=== PATIENT | female | born 1995 | race Caucasian/White ===

== ENCOUNTER 2024-12-12 19:35 | Inpatient (IN) | payer SELFPAY ==
[2024-12-12] MEDS ORDERED: Sodium Chloride 0.9% 2.5 ML Syringe FLUSH PRN (19:37)
[2024-12-12] MEDS ORDERED: Butorphanol 2 MG/ML SDV IVPUSH PRN (19:37)
[2024-12-12] MEDS ORDERED: Tranexamic Acid in NACL,ISO-OS 1,000 MG in Premix Bag 1 BAG IV PRN (19:37)
[2024-12-12] MEDS ORDERED: Lidocaine 1% 50 ML MDV INJECT PRN (19:37)
[2024-12-12] MEDS ORDERED: Carboprost Tromethamine 250 MCG/1 mL Vial IM PRN (19:37)
[2024-12-12] MEDS ORDERED: Misoprostol 200 MCG Tab PO PRN (19:37)
[2024-12-12] MEDS ORDERED: Sodium Chloride 0.9% 10 ML Syringe FLUSH PRN (19:37)
[2024-12-12] MEDS ORDERED: Sodium Chloride 0.9% 20 ML SDV IV PRN (19:37)
[2024-12-12] MEDS ORDERED: Water For Irrigation,Sterile 1,000 ML Container IRR PRN (19:37)
[2024-12-12] MEDS ORDERED: Methylergonovine 0.2 MG/1 ML Amp IM PRN (19:37)
[2024-12-12] MEDS ORDERED: Magnesium Sulfate (4.06 MEQ/ML) 5 GM/10 ML SDV IV ONE (19:40)
[2024-12-12] MEDS ORDERED: Oxytocin/0.9 % Sodium Chloride 30 UNIT/500 ML BAG IV SCH (19:45)
[2024-12-12] MEDS ORDERED: Magnesium Sulfate (4.06 MEQ/ML) 5 GM/10 ML SDV IV SCH (19:45)
[2024-12-12] MEDS ORDERED: Magnesium Sulfate/Water Premix 20 GM/500 ML BAG ONE (19:51)
[2024-12-12] MEDS: Lactated Ringers 1,000 ML IV SCH (20:03)
[2024-12-12] MEDS: Magnesium Sulfate/Water Premix 50 ML ONE (20:04)
[2024-12-12] MEDS: Magnesium Sulfate/Water Premix 100 ML ONE (20:05)
[2024-12-12 20:44] LABS: HEMATOCRIT 32.8 % (37.0-47.0); HEMOGLOBIN 11.3 g/dL (12.0-16.0); MEAN CORPUSCULAR HEMOGLOBIN 31.7 pg (28.0-32.0); MEAN CORPUSCULAR HGB CONC 34.5 g/dL (32.0-36.0); MEAN CORPUSCULAR VOLUME 92.1 fL (83.0-99.0); MEAN PLATELET VOLUME 12.6 fL (9.4-12.3); PLATELET COUNT,PLT 166 K/uL (150-400); RED BLOOD CELL COUNT 3.56 M/uL (4.10-5.30); WHITE BLOOD CELL COUNT,WBC 11.05 K/uL (3.9-11.3)
[2024-12-12] MEDS: Magnesium Sulfate/Water Premix 20 GM/500 ML BAG IV SCH (20:45)
[2024-12-12] MEDS: Ondansetron 4 MG/2 ML SDV IVPUSH ONE (20:47)
[2024-12-12] MEDS ORDERED: Famotidine 40 MG/5 ML Bottle PO ONE (21:10)
[2024-12-12] MEDS: Famotidine 20 MG Tab PO ONE (21:59)
[2024-12-13 16:24] LABS: GROUP B STREP BY PCR NEGATIVE (NEGATIVE)
== END 2024-12-12 22:38 | DRG 833 ==
LOC: MW.OB 19:35
PROVIDERS: ADMIT Obstetrics & Gynecology; ATTEND Obstetrics & Gynecology
DX: O60.02 Preterm labor without delivery, second trimester (principal); O30.032 Twin pregnancy, monochorionic/diamniotic, second trimester; O43.022 Fetus-to-fetus placental transfusion syndrome, second trimester; O40.2XX0 Polyhydramnios, second trimester, not applicable or unspecified; Z3A.26 26 weeks gestation of pregnancy
CPT/HCPCS: 51702; 59025; 85027; 86592; 86850; 86900; 86901; 87653; A9270-GY; J2405; J3475; J7120

== ENCOUNTER 2025-01-26 10:03 | Inpatient (IN) | payer BC ==
[2025-01-26] MEDS ORDERED: Propofol 200 MG/20 ML SDV ONE ×2 (10:53→11:44)
[2025-01-26] MEDS ORDERED: fentaNYL 100 MCG/2 ML SDV ONE ×2 (10:55→12:24)
[2025-01-26] MEDS ORDERED: Azithromycin 500 MG Vial ONE (11:11)
[2025-01-26] MEDS ORDERED: Oxytocin 10 Units/1 ML SDV ONE ×2 (11:27→12:29)
[2025-01-26 11:45] LABS: PTT,PARTIAL THROMBOPLSTIN TIME 21.1 SEC (23.9-30.7)
[2025-01-26 11:47] LABS: A/G RATIO 0.5 (0.9-1.6); ALBUMIN 2.1 g/dL (3.4-5.0); BILIRUBIN TOTAL 0.3 mg/dL (0.2-1.0); CALCIUM 8.3 mg/dL (8.5-10.1); CARBON DIOXIDE,CO2 18.9 mmol/L (21.0-32.0); CREATININE 0.8 mg/dL (0.6-1.0); EST CRCL DRUG DOSING (CG) 98.01 mL/min; POTASSIUM,K 4.3 mmol/L (3.5-5.1); PROTEIN TOTAL,TP 6.1 g/dL (6.4-8.2)
[2025-01-26] MEDS ORDERED: diphenhydrAMINE 50 MG/ML SDV IVPUSH PRN ×2 (11:57→12:46)
[2025-01-26] MEDS ORDERED: Methylergonovine 0.2 MG/1 ML Amp IM PRN (11:57)
[2025-01-26] MEDS ORDERED: Naloxone 0.4 MG/ML SDV IVPUSH PRN ×3 (11:57→12:46)
[2025-01-26] MEDS ORDERED: Ibuprofen 800 MG Tab PO PRN (11:57)
[2025-01-26] MEDS ORDERED: Lanolin 100% Cream 7 GM Tube TOP PRN (11:57)
[2025-01-26] MEDS ORDERED: Bisacodyl 10 MG Supp RECTAL PRN (11:57)
[2025-01-26] MEDS ORDERED: Misoprostol 200 MCG Tab RECTAL PRN (11:57)
[2025-01-26] MEDS ORDERED: Tranexamic Acid in NACL,ISO-OS 1,000 MG/100 ML Bag ONE (12:00)
[2025-01-26] MEDS ORDERED: EPINEPHrine 1 MG/1 ML Amp ONE (12:28)
[2025-01-26] MEDS ORDERED: ceFAZolin 1 GM Vial ONE (12:28)
[2025-01-26] MEDS ORDERED: Ropivacaine 0.5% 5 MG/ML 30 ML SDV ONE (12:28)
[2025-01-26] MEDS ORDERED: Bupivacaine 0.25% 30 ML SDV ONE (12:28)
[2025-01-26] MEDS ORDERED: Morphine PF 10 MG/10 ML SDV ONE (12:29)
[2025-01-26] MEDS ORDERED: Lidocaine 2% 5 ML SDV ONE (12:29)
[2025-01-26] MEDS: fentaNYL 100 MCG/2 ML SDV IVPUSH PRN (12:31)
[2025-01-26] MEDS ORDERED: Ondansetron 4 MG/2 ML SDV ONE (12:33)
[2025-01-26] MEDS ORDERED: Ondansetron 4 MG/2 ML SDV IVPUSH PRN ×2 (12:46)
[2025-01-26] MEDS ORDERED: Morphine 2 MG/ML SYRINGE IVPUSH PRN (12:46)
[2025-01-26] MEDS ORDERED: Nalbuphine 10 MG/1 ML Vial IVPUSH PRN (12:46)
[2025-01-26] MEDS ORDERED: Phenylephrine HCl In 0.9% NaCl 1 MG/10 ML Syringe IVPUSH PRN (12:46)
[2025-01-26] MEDS ORDERED: fentaNYL 50 MCG/ML SDV IVPUSH PRN (12:46)
[2025-01-26] MEDS ORDERED: HYDROmorphone 1 MG/ML Syringe IVPUSH PRN (12:46)
[2025-01-26] MEDS ORDERED: Albuterol 0.083% 2.5 MG/3 ML Neb Soln NEB PRN (12:46)
[2025-01-26] MEDS ORDERED: Metoclopramide 10 MG/2 ML SDV IVPUSH PRN (12:46)
[2025-01-26] MEDS: HYDROmorphone/Normal Saline 6 MG/30 ML PCA Vial IV PRN (13:48)
[2025-01-26] MEDS: Acetaminophen 1,000 MG in Premix Bag 1 BAG IV SCH (13:58)
[2025-01-26] MEDS: Ondansetron 4 MG/2 ML SDV IVPUSH PRN (13:58)
[2025-01-26] MEDS: Lactated Ringers 1,000 ML IV SCH (14:00)
[2025-01-26] MEDS: Simethicone 80 MG Tab.Chew PO SCH (14:05)
[2025-01-26] MEDS: Poractant Alfa 240 MG/3 ML SDV ONE (14:40)
[2025-01-26] MEDS: Poractant Alfa 120 MG/1.5 ML SDV ONE (14:40)
[2025-01-26] MEDS: fentaNYL 100 MCG/2 ML SDV IVPUSH ONE (14:43)
[2025-01-26 15:42] LABS: HEMATOCRIT 21.9 % (37.0-47.0); HEMOGLOBIN 7.4 g/dL (12.0-16.0); MEAN CORPUSCULAR HEMOGLOBIN 31.8 pg (28.0-32.0); MEAN CORPUSCULAR HGB CONC 33.8 g/dL (32.0-36.0); MEAN PLATELET VOLUME 12.3 fL (9.4-12.3); PLATELET COUNT,PLT 195 K/uL (150-400); RED BLOOD CELL COUNT 2.33 M/uL (4.10-5.30); WHITE BLOOD CELL COUNT,WBC 29.77 K/uL (3.9-11.3)
[2025-01-26 15:55] LABS: INR 1.01 (0.86-1.11); PTT,PARTIAL THROMBOPLSTIN TIME 22.5 SEC (23.9-30.7)
[2025-01-26] MEDS: Ferrous Sulfate 325 MG Tab PO SCH (16:11)
[2025-01-26 20:36] LABS: HEMATOCRIT 20.7 % (37.0-47.0); MEAN CORPUSCULAR HEMOGLOBIN 31.4 pg (28.0-32.0); MEAN CORPUSCULAR HGB CONC 33.8 g/dL (32.0-36.0); MEAN CORPUSCULAR VOLUME 92.8 fL (83.0-99.0); MEAN PLATELET VOLUME 12.1 fL (9.4-12.3); NRBC ABSOLUTE 0.02 K/uL (0.00-0.02); NRBC PERCENT 0.1 /100WBC (0.0-0.2); PLATELET COUNT,PLT 186 K/uL (150-400); RED BLOOD CELL COUNT 2.23 M/uL (4.10-5.30); WHITE BLOOD CELL COUNT,WBC 25.75 K/uL (3.9-11.3)
[2025-01-26] MEDS: Docusate Sodium 100 MG Cap PO SCH (21:25)
[2025-01-26 21:35] LABS: PH,UMBILICAL ARTERIAL 7.085 (7.18-7.38); PH,UMBILICAL VENOUS 7.109 (7.25-7.45)
[2025-01-27 05:48] LABS: HEMATOCRIT 18.9 % (37.0-47.0); HEMOGLOBIN 6.5 g/dL (12.0-16.0); MEAN CORPUSCULAR HGB CONC 34.4 g/dL (32.0-36.0); MEAN CORPUSCULAR VOLUME 93.1 fL (83.0-99.0); MEAN PLATELET VOLUME 11.7 fL (9.4-12.3); PLATELET COUNT,PLT 150 K/uL (150-400); RED BLOOD CELL COUNT 2.03 M/uL (4.10-5.30)
[2025-01-27] MEDS: Prenatal Multivitamin with Calcium/Folic Acid/Iron Tab PO SCH (09:00)
[2025-01-27] MEDS: Acetaminophen/oxyCODONE 325-5 MG Tab PO PRN ×2 (09:51)
[2025-01-27] MEDS: Ketorolac 30 MG/ML SDV ONE (09:57)
[2025-01-27] MEDS: Ketorolac 30 MG/ML SDV IVPUSH SCH (09:57)
[2025-01-27] MEDS: HYDROmorphone 1 MG/ML Syringe ONE (12:21)
[2025-01-27] MEDS: Dextrose 10% in Water 1,000 ML ONE (12:21)
[2025-01-27] MEDS ORDERED: Acetaminophen/oxyCODONE 325-5 MG Tab PO PRN (12:46)
[2025-01-27] MEDS: Sodium Ferric Gluconate Cmplex 125 MG in Sodium Chloride 0.9% 100 ML IV ONE (12:47)
[2025-01-28] MEDS ORDERED: Ibuprofen 800 MG Tab PO PRN (15:00)
== END 2025-01-27 16:27 | disposition home or self-care (01) | DRG 540 ==
LOC: MW.OBCHECK 10:03 → MW.OB 10:03 → MW.OBCHECK 10:38 → MW.OB 11:29 → OBSVTOIN 11:29 → MW.OB 16:42
PROVIDERS: ADMIT Obstetrics & Gynecology; ATTEND Obstetrics & Gynecology
PROC: 10D00Z1 Extraction of Products of Conception, Low, Open Approach (ICD-10-PCS; principal; 2025-01-26)
PROC: 3E0T3BZ Introduction of Anesthetic Agent into Peripheral Nerves and Plexi, Percutaneous Approach (ICD-10-PCS; 2025-01-26)
DX: O60.13X2 Preterm labor second trimester with preterm delivery third trimester, fetus 2 (principal); Z3A.32 32 weeks gestation of pregnancy; Z37.2 Twins, both liveborn; O30.033 Twin pregnancy, monochorionic/diamniotic, third trimester; O45.93 Premature separation of placenta, unspecified, third trimester; O99.02 Anemia complicating childbirth; D62 Acute posthemorrhagic anemia
CPT/HCPCS: 01961; 36415; 64488; 80053; 82803; 85027; 85384; 85610; 85730; 86850; 86900; 86901; A9270-GY; J0131; J0456; J0665; J0690; J1171; J1885; J2003; J2274; J2405; J2590; J2704; J2795; J2916; J3010; J7120

== ENCOUNTER 2025-06-10 10:54 | Emergency (ER) | payer BC ==
[2025-06-10 11:44] LABS: BASOPHILS ABSOLUTE AUTO 0.03 K/uL (0.00-0.20); BASOPHILS PERCENT AUTO 0.4 % (0.0-1.0); EOSINOPHILS ABSOLUTE AUTO 0.04 K/uL (0.00-0.45); EOSINOPHILS PERCENT AUTO 0.5 % (0.0-6.0); IMMATURE GRAN ABSOLUTE AUTO 0.02 K/uL (0.00-0.05); IMMATURE GRAN PERCENT AUTO 0.3 % (0.0-0.4); LYMPHOCYTES ABSOLUTE AUTO 2.88 K/uL (1.00-4.80); LYMPHOCYTES PERCENT AUTO 38.0 % (24.0-44.0); MEAN PLATELET VOLUME 11.6 fL (9.4-12.3); MONOCYTES ABSOLUTE AUTO 0.70 K/uL (0.00-0.80); MONOCYTES PERCENT AUTO 9.2 % (0.0-8.0); NEUTROPHILS ABSOLUTE AUTO 3.90 K/uL (1.80-7.70); NEUTROPHILS PERCENT AUTO 51.6 % (41.0-71.0); NRBC ABSOLUTE 0.00 K/uL (0.00-0.02); NRBC PERCENT 0.0 /100WBC (0.0-0.2); PLATELET COUNT,PLT 308 K/uL (150-400); RED BLOOD CELL COUNT 4.97 M/uL (4.10-5.30); WHITE BLOOD CELL COUNT,WBC 7.57 K/uL (3.9-11.3)
[2025-06-10 11:54] LABS: A/G RATIO 1.1 (0.9-1.6); ALANINE AMINOTRANSFERASE,ALT 82.0 IU/L (14-63); ASPARTATE AMNIOTRANSFERASE,AST 43.0 IU/L (15-37); BILIRUBIN TOTAL 0.4 mg/dL (0.2-1.0); BLOOD UREA NITROGEN,BUN 17.0 mg/dL (7.0-18.0); CARBON DIOXIDE,CO2 21.2 mmol/L (21.0-32.0); CHLORIDE,CL 103.0 mmol/L (98-107); CREATININE 0.8 mg/dL (0.6-1.0); EST CRCL DRUG DOSING (CG) 94.21 mL/min; GLUCOSE RANDOM 97.0 mg/dL (74-106); POTASSIUM,K 4.0 mmol/L (3.5-5.1); PROTEIN TOTAL,TP 8.0 g/dL (6.4-8.2); SODIUM,NA 138.0 mmol/L (136-145)
[2025-06-10 11:55] LABS: APPEARANCE,URINE CLEAR; GLUCOSE,URINE NEGATIVE (NEGATIVE); OCCULT BLOOD,URINE NEGATIVE (NEGATIVE)
[2025-06-10 12:00] LABS: ESTIMATED GFR 103.0 mL/min (>60)
== END 2025-06-10 14:03 | disposition home or self-care (01) ==
LOC: MW.ED 10:54
DX: Q38.0 Congenital malformations of lips, not elsewhere classified (principal); F32.A Depression, unspecified; T42.6X5A Adverse effect of other antiepileptic and sedative-hypnotic drugs, initial encounter; Z79.82 Long term (current) use of aspirin; Z79.899 Other long term (current) drug therapy
CPT/HCPCS: 36415; 80053; 81003; 84484; 84703; 85025; 99284; J7030